=== PATIENT | male | born 1995 | race Caucasian/White ===

== ENCOUNTER → 2022-02-22 | Emergency (ER) | payer SELFPAY ==
[~2022-02-22] MED LIST: IBUPROFEN600 MG PO
== END | disposition home or self-care (01) ==
LOC: ER1 22:21
DX: S62.336A Displaced fracture of neck of fifth metacarpal bone, right hand, initial encounter for closed fracture (principal); W22.8XXA Striking against or struck by other objects, initial encounter; Y92.009 Unspecified place in unspecified non-institutional (private) residence as the place of occurrence of the external cause
CPT/HCPCS: 29125; 73130; 99283

== ENCOUNTER → 2022-03-06 | Day surgery (SDC) | payer OTHER ==
[~2022-03-06] MED LIST changes: +HYDROCODON-ACE1 EAC2 PO
[2022-03-06 08:51] LABS: HEMOGLOBIN 14.5 gm/dl (14.0-17.5); RED BLOOD COUNT 4.55 M/UL (4.20-5.50); WHITE BLOOD COUNT 5.6 K/UL (4.5-11.0)
[2022-03-06 09:12] LABS: BUN/CREATININE RATIO 13 (0-10)
== END | disposition home or self-care (01) ==
LOC: OR 08:17
PROVIDERS: Orthopaedic Surgery
DX: S62.336A Displaced fracture of neck of fifth metacarpal bone, right hand, initial encounter for closed fracture (principal); W22.8XXA Striking against or struck by other objects, initial encounter
CPT/HCPCS: 73130; 76000; 80048; 85027; C1713; C1776; J0690; J1100; J1170; J1885; J2001; J2250; J2405; J2704